=== PATIENT | male | born 2000 | race Caucasian/White ===

== ENCOUNTER 2018-01-17 15:39 | Emergency (ER) | payer MEDICAID ==
[~2018-01-17] VITALS: Ht 190.5 cm; Wt 110.0 kg
[~2018-01-17 15:39] MED LIST: IBUP-1984 PO; NO HOME MEDS
[2018-01-17 15:47] VITALS: BP 149/94
[2018-01-17] MEDS ORDERED: acetaminophen w/codeine (30MG) #3 tablet PO ONE (17:25)
[2018-01-17] MEDS ORDERED: ACET-3067 PO (17:27)
== END 2018-01-17 18:15 | disposition home or self-care (01) ==
LOC: ER 15:41
DX: M79.605 Pain in left leg (principal)
CPT/HCPCS: 99282; A6255

== ENCOUNTER 2021-02-23 09:54 | Emergency (ER) | payer MEDICAID ==
[~2021-02-23] VITALS: Ht 190.5 cm; Wt 109.4 kg
[~2021-02-23 09:54] MED LIST changes: +LIDOcaine 1% W/epiNEPHrine 1:100,000 20ml vial ONE
[2021-02-23 10:19] VITALS: BP 138/98
[2021-02-23] MEDS ORDERED: CEPH250T PO (12:21)
[2021-02-23] MEDS ORDERED: SULF1TAB45 PO (12:21)
== END 2021-02-23 12:38 | disposition home or self-care (01) ==
LOC: ER 09:55
DX: L02.511 Cutaneous abscess of right hand (principal); Z79.899 Other long term (current) drug therapy
CPT/HCPCS: 26010; 73140; 99283

== ENCOUNTER 2025-03-06 06:09 | Emergency (ER) | payer MEDICAID, OTHER ==
[~2025-03-06] VITALS: Ht 190.5 cm; Wt 110.3 kg
[~2025-03-06 06:09] MED LIST changes: -LIDOcaine 1% W/epiNEPHrine 1:100,000 20ml vial ONE
[2025-03-06 06:15] VITALS: TEMP 98
--- NOTE | 2025-03-06 06:59 | Physician Documentation ---
History of Present Illness Chief Complaint: Vomiting Stated Complaint: VOMITING Time Seen by MD: 06:27 Primary Medical Doctor: [facility] HPI This is a 25-year-old gentleman with no significant past medical history who presents for evaluation of nausea vomiting that began three days ago without any obvious trigger provocation. The particular palliating or aggravating factors. He smokes marijuana everyday, however with the hot showers with a up helping. No prior history of cannabinoid hyperemesis. He states that he yesterday he vomited 2 times, however today he is experiencing intractable nausea vomiting. He also reports that it has been lack of flatus for the last two days. The prior history of abdominal surgery. He did not develop epigastric abdominal pain after multiple episodes of vomiting. The particular palliating or aggravating factors. Smokes marijuana, denies any other substance use. 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 Physical Exam Vital Signs: Temperature: 98.0, Heart Rate: 76, Respiratory Rate: 16, BP: 156/103, Pulse Oximetry: 100, Weight: 110.300 Oxygen Flow Rate: 0 Physical Exam GENERAL: Awake, alert, oriented, GCS 15, no apparent distress, non-toxic appearing, answers questions, follows commands appropriately. Actively vomiting in triage, accompanied by dad HEENT: Atraumatic, normocephalic, pupils equal, extraocular muscles intact, sclerae anicteric, mucus membranes moist, oropharynx is clear, no stridor. NECK: supple, full active range of motion, trachea midline, no thyromegaly, no lymphadenopathy, no JVD. CARDIOVASCULAR: regular rate/rhythm, no murmurs/gallops/rubs, Pulses are 2+ in all extremities and symmetric. Capillary refill less than 2 seconds. PULMONARY: Nonlabored, good air movement ,no respiratory distress, speaking in full sentences, clear to auscultation bilaterally, no wheezing, no ronchi, no rales, no accessory muscle use. GASTROINTESTINAL: Soft, non-tender, non-distended, normal active bowel sounds, no organomegaly, no pulsatile masses, no CVA tenderness. NEUROLOGIC: Lucid with normal mental status. Normal facial symmetry. Moves all extremities symmetrically and with purpose. No truncal ataxia. Speech is fluid without evidence of dysarthria or aphasia, no focal deficits appreciated. MUSCULOSKELETAL: There is full range of motion of all extremities. There is no joint pain or joint swelling or joint erythema. There is no muscle pain or tenderness or swelling. EXTREMITIES: warm, well-perfused, no cyanosis, no clubbing, no edema, no acute deformities. Skin: warm, dry, no rashes or lesions, no jaundice, no petechiae orpurpura. No ecchymosis. PSYCHIATRIC: Normal affect, normal insight, normal concentration. Focused exam: [] Progress Results/Orders Results/Orders Orders - JYOTSNA LOPEZ DO Urinalysis, Cult If Indicated (03/06/25 06:13) Cbc/Diff (03/06/25 06:13) Lipase (03/06/25 06:13) CMP (03/06/25 06:13) Completed Orders - JYOTSNA LOPEZ DO Ondansetron Disint. Tablet (Zofran Odt T (03/06/25 06:35) Vital Signs 03/06/25 06:15 Temp 98.0 Pulse 76 Resp 16 B/P (MAP) 156/103 Pulse Ox 100 O2 Flow Rate 0 Medical Decision Making Findings Facility Status: ED Holds, [facility] process The plan was discussed with the patient, who demonstrates clear understanding of the plan and is in agreement with the plan unless otherwise noted in the chart. All questions have been answered, all concerns were addressed unless otherwise documented. I was available throughout their ED stay for frequent reassessment and questions. Differential Diagnoses (considered and possible or likely): [Preformed toxin ingestion/food poisoning, viral gastroenteritis, less likely bowel obstruction, less likely carcinoid syndrome, less likely cannabinoid hyperemesis, less likely acute surgical process and abdomen] ??Differential Diagnoses (considered and unlikely, not requiring evaluation currently): [No evidence of traumatic injury] MDM Data Please see HPI for the following: Independent Historians and external Records Review. Historian: [Patient] Independent Historians: ?[Dad, record review] Medication Management: [Reviewed medication list] Social History and determinants: [Reviewed] Please see the body of the note for the following: Any independent interpretations of ECG, imaging studies. All vitals signs/haemodynamics, ordered tests were independently reviewed and interpreted by myself. Nursing triage complaint and vitals reviewed, additional nursing notes were reviewed as available and I agree unless otherwise noted or documented in contradiction in the chart Vital Signs: Independently reviewed Labs: Independently interpreted Imaging: Independently interpreted Old Medical Records: Independently reviewed, see HPI for relevant summary and information Pulse Oximetry: [100%] interpreted as [normal on room air] by me [Paper Inspector: [Regular Rate, Regular rhythm, no ectopy, NSR] reviewed and interpreted by me] Additionally notably showing: [Hemodynamically stable. Mild hypokalemia noted process, however diverticulosis without diverticulitis noted] Tests considered but not ordered include: [Not consistent with cholecystitis, ultrasound can be done on outpatient basis] Social Determinants of Health Impact: Patient was evaluated in [facility] [place] to healthcare due to below par ratio of patient to medical providers. [] Comorbid Conditions Impacting Present Evaluation and Care/Treatment: [Marijuana use disorder] Management Discussions with other Healthcare Providers: [Non] Treatment and Disposition Medication Management (Given or considered): [Nausea management, fluid resuscitation]. See EMR for details Consideration for Hospitalization/Escalation/Deescalation of Care: Admission for observation has been considered, [however the patient is able to tolerate p.o., their symptoms are controlled, they are able to rely on oral medications, and their chief complaint/diagnosis can be managed on outpatient basis.] ?ED Course:?[Patient did have positive true suicide on presentation, improved with fluid resuscitation. Potassium was corrected.] ?Shared decision making:?[Patient is hemodynamically stable for discharge home with follow with their primary care provider. [ ] Specific and cautious return precautions provided and discussed with full understanding. Any incidental findings were also discussed and follow up recommendations given. [] All questions answered. Patient/family were able to verbalize back return precautions. Patient/family agree to plan. Copies of imaging and laboratory studies were provided.] Code status:?FULL Please see the full Electronic Medical Record for full details of nursing do cumentation, medications list, other records of complete past medical history and conditions, vital signs, laboratory studies, and any radiologic study interpretations by radiologists. Portions of this note were completed using [employer] dictation software and as a result there may exist minor errors in spelling. I have reviewed elements of past family and social history and agree as included in note. Departure Disposition: HOME / SELF CARE / HOMELESS Impression: Primary Impression: Nausea and vomiting Additional Impression: Epigastric abdominal pain Condition: Improved Discharge Instructions: Nausea and Vomiting, Adult, Dehydration, Adult Referrals: NO PRIMARY CARE PROVIDER (PCP) Prescriptions ONDANSETRON ODT 4mg tablet (ONDANSETRON ODT) 4 Mg Tab.rapdis 1 TAB PO Q6H PRN PRN for nausea/vomiting for 4 Days, #16 TAB 0 Refills Prov: JYOTSNA LOPEZ DO 03/06/25 Education Educated: Patient Educated regarding: diagnosis, treatment, prognosis, need for follow up Signature Scribe Signature: No scribe Attestation: This note accurately reflects clinical decisions, work performed by myself, DO JOHN Weeks NICHOLAS M DO March 06, 2025 06:59
[2025-03-06] MEDS: ondansetron 4mg rapidly disintigrating tab PO ONE (07:05)
[2025-03-06] MEDS: ringers solution, lacted 1,000 ML IV ONE (07:14)
[2025-03-06] MEDS: proCHLORperazine 10 MG/2 ml inj IV ONE (07:19)
[2025-03-06] MEDS ORDERED: iohexol 300mg/ml 100ml inj. ONE (07:20)
[2025-03-06 07:39] LABS: BASOPHILS # (AUTO) 0.1 X10'3 (0-0.2); BASOPHILS % (AUTO) 0.5 % (0-1); EOSINOPHILS # (AUTO) 0.1 X10'3 (0-0.9); EOSINOPHILS % (AUTO) 1.3 % (0-6); HEMATOCRIT 42.4 % (42.0-52.0); HEMOGLOBIN 14.9 g/dl (14.0-17.9); LYMPHOCYTES # (AUTO) 2.3 X10'3 (1.1-4.8); LYMPHOCYTES % (AUTO) 22.7 % (21-51); MEAN CORPUSCULAR HGB CONC 35.2 g/dL (33.0-36.5); MEAN CORPUSCULAR VOLUME 85.3 FL (78-98); MEAN PLATELET VOLUME 8.7 FL (7.4-10.4); MONOCYTES # (AUTO) 0.8 X10'3 (0-0.9); MONOCYTES % (AUTO) 7.5 % (2-12); NEUTROPHILS # (AUTO) 6.8 X10'3 (1.8-7.7); PLATELET COUNT 374 X10'3 (140-440); RED BLOOD COUNT 4.98 X10'6 (4.70-6.10); RED CELL DISTRIBUTION WIDTH 12.7 % (11.5-14.5)
[2025-03-06 07:59] LABS: ALANINE AMINOTRANSFERASE 22 U/L (12-78); ALBUMIN 4.4 G/DL (3.4-5.0); ALBUMIN/GLOBULIN RATIO 1.3 (1.1-1.5); ALKALINE PHOSPHATASE 105 IU/L (46-116); ANION GAP 14 (8-16); ASPARTATE AMINO TRANSFERASE 19 U/L (10-37); BILIRUBIN,TOTAL 0.8 MG/DL (0.1-1.0); BLOOD UREA NITROGEN 13 MG/DL (7-18); BUN/CREATININE RATIO 13.7 (10.0-20.0); CALCIUM 9.5 MG/DL (8.5-10.1); CHLORIDE 102 MMOL/L (99-107); CREATININE 0.95 MG/DL (0.60-1.10); GLUCOSE 122 MG/DL (70-104); LIPASE 43 U/L (16-77); POTASSIUM 3.2 MMOL/L (3.5-5.1); SODIUM 140 MMOL/L (135-145); TOTAL CARBON DIOXIDE 24.5 MMOL/L (24-32); TOTAL PROTEIN 7.8 G/DL (6.4-8.2); eCRCL 140 ML/MIN; eGFR > 90 ML/MIN
--- NOTE | 2025-03-06 08:50 | RADIOLOGY REPORT ---
CLINICAL INFORMATION: Upper abdominal pain, nausea and vomiting. TECHNIQUE: Axial CT images of the abdomen and pelvis were obtained after the uneventful administrati on of 100 mL Omnipaque 300 IV contrast. Coronal and sagittal reformatted images were obtained, review ed, and stored. All CT scans at this medical facility are performed using dose modulation techniques as appropriate to a performed exam including the following: Automated exposure control was utilized; adjustment of the MA and/or KV according to patient size; and use of iterative reconstruction technLaTherm ue. CTDIvol = 31.74 mGy DLP = 1619.78 mGy-cm COMPARISON: None FINDINGS: Lung bases: Lung bases are clear. Liver: Unremarkable. No abnormal density or focal lesion. Biliary: Punctate calcified gallstone in the gallbladder. Spleen: Unremarkable. Pancreas: Unremarkable. No inflammatory changes, ductal dilatation, or mass identified. Adrenal glands: Unremarkable. No mass. Kidneys: No hydronephrosis. Cyst in the upper pole of the left kidney measures up to 1.8 cm. Aorta/Vascular: No aneurysm or significant calcification. Retroperitoneum: No mass or lymphadenopathy. Bowel/mesentery: No small bowel obstruction. Nonspecific nondilated fluid-filled small bowel loops. A ppendix is visualized and appears unremarkable. Scattered colonic diverticula without adjacent infla mmatory changes to suggest diverticulitis. There is fatty replacement of the wall of portions of the colon, which is nonspecific, but may inflammation. Pelvic organs: Grossly unremarkable. Bladder: Unremarkable. No mass. Abdominal wall: No mass or hernia. Bones: No acute fracture or focal intraosseous lesion. IMPRESSION: 1. Scattered colonic diverticula without adjacent inflammatory changes to suggest diverticulitis. 2. Nonspecific nondilated fluid-filled small bowel loops. Findings may be seen with ileus or enteriti s in the appropriate clinical setting. No small bowel obstruction. 3. Cholelithiasis. 4. Additional findings as described above.
[2025-03-06] MEDS ORDERED: ONDA-243 PO (09:04)
[2025-03-06 09:40] VITALS: BP 129/61; PULSE 78; RESP 16; O2SAT 100
== END 2025-03-06 09:44 | disposition home or self-care (01) ==
LOC: ER 06:09
DX: R11.2 Nausea with vomiting, unspecified (principal); R10.13 Epigastric pain
CPT/HCPCS: 36415; 74177; 80053; 82330; 83690; 85025; 96361; 96374; 99285; J0780; J7120; Q9967; J7030

== ENCOUNTER 2025-06-06 09:01 | Inpatient (IN) | payer OTHER ==
[~2025-06-06] VITALS: Ht 190.5 cm; Wt 99.9 kg
[2025-06-06] VITALS (21 sets, daily range): BP systolic 110–144; BP diastolic 54–89; PULSE 47–92; RESP 14–26; TEMP 97.2–98.6; O2SAT 93–100
[~2025-06-06 09:01] MED LIST changes: +ONDA-243 PO
[2025-06-06 09:49] LABS: MEAN PLATELET VOLUME 8.2 FL (7.4-10.4); RED CELL DISTRIBUTION WIDTH 13.1 % (11.5-14.5)
[2025-06-06] MEDS: ondansetron 4mg rapidly disintigrating tab PO ONE (10:00)
--- NOTE | 2025-06-06 10:02 | ELECTROCARDIOGRAPH REPORT ---
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 Horacio Hidalgo Measurements Intervals [place] Rate: 55 P: 7 NV: 162 QRS: -15 QRSD: 96 T: 17 QT: 471 QTc: 451 Interpretive Statements Sinus bradycardia Borderline left axis deviation ST elev, probable normal early repol pattern Electronically Signed On 06-06-2025 20:05:[address] Horacio Hidalgo Please click the below link to view image of tracing.
[2025-06-06 10:03] LABS: CREATININE 0.90 MG/DL (0.60-1.10); TOTAL CARBON DIOXIDE 20.7 MMOL/L (24-32); eCRCL 147 ML/MIN; eGFR > 90 ML/MIN
--- NOTE | 2025-06-06 10:32 | Physician Documentation ---
History of Present Illness Chief Complaint: Abdominal Pain w/vomiting Stated Complaint: ABD PAIN Time Seen by MD: 10:18 Primary Medical Doctor: [facility] HPI This 25-year-old male presents to the ED with a complaint of right lower quadrant abdominal pain since 7:00 a.m. this morning. States he feels generally ill has a increased pain. In the area.reportd Pain when walking or jumping Patient states he has all of his organs and thinks that his pain may be his appendix.. Patient is generally healthy. Reports a subjective fever. 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 Physical Exam Vital Signs: Temperature: 97.6, Source: Oral, Heart Rate: 43, Respiratory Rate: 14, BP: 156/97, Pulse Oximetry: 100, Weight: 219.700 Oxygen Flow Rate: 0 Physical Exam General: Alert, no apparent distress. Respiratory: Lungs clear, no respiratory distress. . Cardiovascular: Regular rate and rhythm, no murmurs. Gastrointestinal: Soft, tender right lower quadrant deep palpation., negative rebound tenderness Neurologic: Oriented x4. Psychiatric: Normal mood and affect. Skin: Normal color, warm and dry. No edema, no ecchymosis. 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 (06/06/25 10:30) Morphine 4mg/Ml Inj. (Morphine Inj.) (06/06/25 10:30) Medications Received in ER Medications (Trade) Dose Ordered Sig/Jody Route PRN Reason Start Time Stop Time Status Last Admin Dose Admin (Zofran ODT tablet) 4 mg ONCE ONCE PO 06/06/25 09:55 06/06/25 09:57 DC 06/06/25 10:00 4 MG Vital Signs 06/06/25 06/06/25 09:04 10:22 Temp 98.1 97.6 Pulse 62 43 Resp 26 14 B/P (MAP) 140/107 156/97 (116) Pulse Ox 100 100 O2 Flow Rate 0 0 Laboratory Tests Test 06/06/25 09:34 White Blood Count 23.9 H Red Blood Count 4.73 Hemoglobin 14.0 Hematocrit 40.2 L Mean Corpuscular Volume 84.9 Mean Corpuscular Hemoglobin 29.6 Mean Corpuscular Hemoglobin Concent 34.8 Red Cell Distribution Width 13.1 Platelet Count 325 Mean Platelet Volume 8.2 Neutrophils (%) (Auto) 84.0 H Lymphocytes (%) (Auto) 9.5 L Monocytes (%) (Auto) 5.4 Eosinophils (%) (Auto) 0.8 Basophils (%) (Auto) 0.3 Neutrophils # (Auto) 20.1 H Lymphocytes # (Auto) 2.3 Monocytes # (Auto) 1.3 H Eosinophils # (Auto) 0.2 Basophils # (Auto) 0.1 CBC Comment Sodium Level 141 Potassium Level 3.7 Chloride Level 107 Carbon Dioxide Level 20.7 L Anion Gap 13 Blood Urea Nitrogen 14 Creatinine 0.90 Estimated GFR/1.73 m2 > 90 BUN/Creatinine Ratio 15.6 Glucose Level 128 H Calcium Level 9.1 Total Bilirubin 0.5 Aspartate Amino Transf (AST/SGOT) 20 Alanine Aminotransferase (ALT/SGPT) 27 Alkaline Phosphatase 87 Total Protein 7.6 Albumin 4.2 Globulin 3.4 Albumin/Globulin Ratio 1.2 Lipase 23 Chemistry Comments Medical Decision Making Findings Dr. Sweeney was advanced in the patient's condition. At this time we are suspecting unlikely positive appendicitis. We will go to the OR if this is the case in an we will be transferred to the floor. Differential Dx:Considerations: Include: AAA, Angina/CO, Aortic dissection, Appendicitis, Bowel obstruction, Cholangitis, Cholelithasis, Constipation, Diverticular disease, Esophageal rupture, Esophagitis, Gastritis/PUD, Gastroenteritis, GI hemorrhage, Hernia, Hepatitis, Inflammatory BD, Ischemic bowel, Pancreatitis, Porphyria, Testicular torsion, Trauma, intraabdominal, Urinary obstruction, Urinary tract infection, Urolithiasis, Other Departure Disposition: HOME / SELF CARE / HOMELESS Impression: Primary Impression: Abdominal pain Additional Impression: Appendicitis Referrals: NO PRIMARY CARE PROVIDER (PCP) Education Educated: Patient Educated regarding: diagnosis Signature Scribe Signature: g Attestation: Scribed for Brody Sinclair Icu Tech by Brody Lopez NP . 06/06/25 11:45 BRODY SINCLAIR NP Jun 06, 2025 10:32
[2025-06-06] MEDS: normal saline 1000ML IV soln IVB ONE (10:52)
[2025-06-06] MEDS: morphine 4 MG/ML inj SYRINge IV ONE (10:59)
[2025-06-06] MEDS: piperacillin/tazo 3.375gm/50ml 50 ML IV SCH ×2 (11:00→22:01)
[2025-06-06] MEDS ORDERED: iohexol 300mg/ml 100ml inj. ONE (11:36)
--- NOTE | 2025-06-06 11:46 | CONSULTATION REPORT ---
Consult Providers to CC ~ History of Present Illness Reason for Admit\Complaint: 25-year-old male with complaint of severe right lower quadrant pain. History of Present Illness 25-year-old male who presented to emergency room this morning 06/06/2025 for above complaints. Associated symptoms include fever, chills, nausea, vomiting. Denies diarrhea or constipation. Patient has no significant past medical history or surgical history. He does not take any medications. Last bowel movement early this morning. Last meal last night 06/05/25. Patient currently seen in mild distress with right lower quadrant pain. Allergies: Coded Allergies: No Known Allergies (Unverified , 06/06/25) Home Medications Home Medications Active Ondansetron Odt (Ondansetron HCl) 4 Mg Tab.rapdis 1 Tab PO Q6H PRN PRN 4 Days Motrin* (Ibuprofen) 400 Mg Tablet 1-2 Tab PO Q8H Reported No Home Medications (Home Med List) Each Past Medical History Past Medical History None Past Surgical History Surgical History Comment None Past Social History Social History Comment Denies ETOH, or recreational drug abuse Health Maintenance Health Maintenance Nonsignificant ROS ROS All within normal limits except for HPI Exam Vitals: Vital Signs Date Time Temp Pulse Resp B/P (MAP) Pulse Ox O2 Delivery O2 Flow Rate FiO2 06/06/25 10:59 15 06/06/25 10:24 06/06/25 10:22 97.6 43 100 0 General: Well nourished, mild distress HEENT: NC/AT, PERRLA, nonicteric, no nasal discharge, no pharyngeal exudates Neck: Supple, nontender Chest: Clear to auscultation bilaterally Cardiovascular: Regular rate and rhythm Abdomen: Soft, nondistended, +right lower quadrant tenderness, no guarding, no rebound Extremities: No clubbing, cyanosis, or edema Central Nervous System: Alert and oriented x3, no gross or focal deficits Musculoskeletal: Free range of motion, no weakness Skin: Warm, dry, non diaphoretic Diagnostic Data Last Recorded Lab Results: 06/06/25 0934 06/06/25 0934 Diagnostic Data: CT scan: Pending Problems: (1) Abdominal pain (2) Appendicitis Status: Acute Assessment & Plan: Assessment: acute appendicitis, Highly likely based on history, physical, and labs. Plan: After CT confirmation of probable appendicitis, laparoscopic appendectomy is planned. The risks and benefits of the planned procedure were presented to the patient including but not limited to infection, bleeding, poor wound healing, and non resolution of pain symptoms. He was given the opportunity to ask questions, and all his questions were answered to her satisfaction present time. Prophylactic IV antibiotics has been initiated in the ER. Date of Service: Jun 06, 2025 Billing Provider: CALEB HARDY DO Common Visit Codes: 77080-GHI/OBS SAME DATE (HIGH) CALEB HARDY DO Jun 06, 2025 11:46
[2025-06-06] MEDS ORDERED: HYDROcodone/acetaminophen 5mg/325mg tablet PO PRN (11:55)
[2025-06-06] MEDS ORDERED: potassium Cl 20 mEq SR tablet PO PRN ×2 (11:55)
[2025-06-06] MEDS ORDERED: potassium Cl 40MEQ/1/2NS 520ml 520 ML IV PRN (11:55)
[2025-06-06] MEDS ORDERED: ondansetron/PF 4mg/2ml inj IV PRN ×2 (11:55→13:25)
[2025-06-06] MEDS ORDERED: magnesium sulf-water 2g/50mL 50 ML IV PRN (11:55)
[2025-06-06] MEDS ORDERED: mag hydrox/Alum hydrox/simeth 30ml oral suspension PO PRN (11:55)
[2025-06-06] MEDS ORDERED: magnesium hydroxide 30ml (MOM) UD suspension PO PRN (11:55)
[2025-06-06] MEDS ORDERED: normal saline 1000ml 1,000 ML IV ONE (11:55)
[2025-06-06] MEDS ORDERED: magnesium sulf-water 4G/100mL 100 ML IV PRN (11:55)
[2025-06-06] MEDS ORDERED: BUPIVAcaine/PF 5 mg/ml 10ml ONE (12:28)
[2025-06-06] MEDS ORDERED: LIDOcaine 1% (10mg/ml)w/preservative inj. 20ml MDV ONE (12:29)
--- NOTE | 2025-06-06 12:40 | RADIOLOGY REPORT ---
Exam: CT CT ABDOMEN PELVIS W/ IV CONTRAST History: RLQ abd pain Comparison Study: CT CT ABDOMEN PELVIS W/ IV CONTRAST on DOS: 03/06/25 Technique: Multidetector spiral CT of the abdomen was performed from lung bases to pubic symphysis. A xial imaging was performed with intravenous contrast following the uneventful administration of 100 m l Omnipaque 300. Coronal and sagittal multiplanar reformats were obtained from the axial data set by the technologist. Radiation Dose : 1. Abdomen/Pelvis: CTDIvol 27.4 mGy, DLP 1432.4 mGy*cm. Findings: Lung Bases: Lung bases are clear. Visualized portions of the heart and pericardium are unremarkable. Liver: The liver is normal in size. No focal lesions. Gallbladder and Biliary Tree: The gallbladder is unremarkable. No intrahepatic or extrahepatic bilia ry ductal dilatation. Spleen: Unremarkable Pancreas: The pancreas enhances normally and there are no focal lesions. The main pancreatic duct is not dilated Adrenal Glands: Unremarkable Kidneys: Kidneys enhance symmetrically. No calculi or hydronephrosis. GI tract: The stomach is grossly normal in appearance. The small bowel is underdistended. No small b owel obstruction or suspicious wall thickening. The colon is underdistended. There is dilatation and mucosal hyperemia of the appendix. The appendix measures 9 mm in diameter and there is mild periapp endiceal fat stranding, consistent with acute appendicitis. Peritoneum/mesentery/retroperitoneum. No evidence of free intraperitoneal air. No ascites. No fluid c ollection. Lymph nodes: No evidence of suspicious lymphadenopathy. Abdominal Wall: Unremarkable. Vasculature: Abdominal aorta and main branches are unremarkable. Normal vascular enhancement. Urinary Bladder: Grossly unremarkable for degree of distention. Pelvic Organs: Unremarkable Musculoskeletal: No aggressive focal bony lesions, acute fractures or dislocation. Multiple Schmorl's nodes noted. IMPRESSION: 1.Acute appendicitis. No perforation or fluid collection.
--- NOTE | 2025-06-06 12:49 | HISTORY AND PHYSICAL ---
History & Physical Providers to ~ History of Present Illness Reason for Admit\Complaint: Acute appendicitis, sepsis History of Present Illness Jonathan Cummings is a 25-year-old male with no reported past medical history who presented to the ED with chief complaint of acute onset right lower quadrant abdominal pain with associated symptoms of fever x 1 day. Patient denies prior [place]/CAD, CVA, cardiac arrhythmia, DVT/PE, or GIB. Patient denies chest pain, palpitations, shortness of breath, n/v/d. CT abdomen/pelvis consistent with acute appendicitis. Other notable findings were findings of sepsis including elevated lactic acid. Patient is admitted for surgical consult and medical management. Surgeon Vick Jacobson is consulted and patient is being taken to OR today. Allergies: Coded Allergies: No Known Allergies (Unverified , 06/06/25) Home Medications Home Medications Active Ondansetron Odt (Ondansetron HCl) 4 Mg Tab.rapdis 1 Tab PO Q6H PRN PRN 4 Days Motrin* (Ibuprofen) 400 Mg Tablet 1-2 Tab PO Q8H Reported No Home Medications (Home Med List) Each Past Medical History Past Medical History Denies Past Surgical History Surgical History Comment Denies Past Social History Social History Comment Alcohol: denies Tobacco: e-cig, daily Illicit Drug Use: denies Living Situation: Lives at home with family ROS ROS Other than positives in HPI, all 14 review of systems are negative Exam Vitals: Vital Signs Date Time Temp Pulse Resp B/P (MAP) Pulse Ox O2 Delivery O2 Flow Rate FiO2 06/06/25 12:15 40 16 135/80 (98) 97 0 06/06/25 10:22 97.6 General: Generalized weakness, A&Ox 3, NAD HEENT: Normocephalic, PERRLA Neck: Supple, trachea midline, no JVD Chest: Clear to auscultation bilaterally Cardiovascular: RRR, S1&S2 Extremities: No cyanosis/clubbing/or edema Central Nervous System: CN II-XII intact, no focal deficits Musculoskeletal: No paraspinal muscle tenderness, no muscle spasm Skin: Laproscopic incisions umbilicus, left lower quadrant, right lower quadrant w/o s/s infection Diagnostic Data Last Recorded Lab Results: 06/06/25 0934 06/06/25 0934 Additional Plan Assessment & Plan Acute appendicitis Sepsis 2/2 appendicitis -CT shows acute appendicitis. No perforation or fluid collection. OR today for lap appendectomy -IVF, Zosyn, follow blood cx DVT/VTE Prophylaxis: SCDs Code status: Full Code I spent a total of 35 minutes discussing Advanced Care Planning measures with the patient. Advance care planning: Discussed with patient the importance of advance care planning in case of emergent situation. We discussed various resuscitative measures/ ACP with the patient at the time of admission. Patient voiced understanding and patient has decided on a full code status. Date of Service: Jun 06, 2025 Billing Provider: JUAN PABLO RERADON Common Visit Codes: 56325-BOMIDBH INP/OBS CARE (HIGH) Secondary Visit Codes: 12792-AJNPRQLX CARE PLAN 30 MINUTES JUAN PABLO REARDON Jun 06, 2025 12:49
[2025-06-06] MEDS ORDERED: hydrALAZINE 20mg/ml inj. IV PRN (13:25)
[2025-06-06] MEDS ORDERED: labetalol 20mg/4ml (5mg/ml) syringe IV PRN (13:25)
[2025-06-06] MEDS ORDERED: HYDROmorphone/PF 0.2 MG/ML SYRINGE IV PRN ×2 (13:25)
[2025-06-06] MEDS: ringers solution, lacted 1,000 ML IV SCH ×2 (13:25→18:40)
[2025-06-06] MEDS ORDERED: midazolam 1 mg/ML 2ml injection ONE (13:28)
[2025-06-06] MEDS ORDERED: fentaNYL /PF 50mcg/ml 5ml ampule ONE (14:04)
[2025-06-06] MEDS ORDERED: dexamethasone sod phosphate 4mg/ml inj. ONE (14:12)
[2025-06-06] MEDS ORDERED: propofol inj 20 ML IV ONE (14:12)
[2025-06-06] MEDS ORDERED: rocuronium 10mg/ml inj IV ONE (14:12)
[2025-06-06] MEDS ORDERED: ondansetron/PF 4mg/2ml inj ONE (14:13)
[2025-06-06] MEDS ORDERED: LIDOcaine 2% (20mg/ml) 5ml vial ONE (14:13)
[2025-06-06] MEDS ORDERED: glycopyrrolate 0.2mg/ml inj ONE (14:31)
[2025-06-06] MEDS: ringers solution, lacted 1,000 ML IV ONE (14:37)
--- NOTE | 2025-06-06 15:01 | OPERATIVE REPORT ---
Operative Report Providers to ~ Date of Procedure: Jun 06, 2025 Pre-Operative Diagnosis: Acute appendicitis Post-Operative Diagnosis SAME as PRE-Op Procedure Performed Laparoscopic appendectomy Surgeon: Vick Sweeney DO Solar Installation Supervisor None Anesthesiologist: Arron Cheek Type of Anesthesia: General Findings: As per operative dictation Complications None Prosthetics\Implants used: None Estimated Blood Loss: Minimal Specimen Removed: Appendix Description of Procedure: 25-year-old male who presents to the emergency room with severe right lower quadrant pain. CT scan demonstrated findings consistent with acute appendicitis. Laparoscopic appendectomy was planned. The risks and benefits of the planned procedure were presented including but not limited to infection, bleeding, and nonresolution of pain and symptoms. He was given the opportunity to ask questions, and all his questions were answered to his satisfaction pres ent time. After informed consent was obtained, patient received a dose of prophylactic IV antibiotics while in the emergency room. Patient was then brought to the operating room placed in supine position. After general anesthesia was administered, sequential compression device were placed in lower extremities and Jones catheter was inserted. The abdomen was prepped and draped as per usual sterile OR technique. Using combination of 1% lidocaine, and 0.25% Marcaine, all planned incision sites were preemptively anesthetized. The 1st incision at the umbilicus. A 10 mm infraumbilical incision was made down to the level of the fascia. The fascia was grasped with 2 Yves clamps and incised. The abdominal cavity was safely accessed with a blunt 5 mm port. Pneumoperitoneum was achieved to a level of 15 mmHg. Under laparoscopy another 5 mm port was placed in left lower quadrant. The 5 mm port at the umbilicus was replaced with a blunt 12 mm port. The 5 mm port was then placed at the suprapubic region. The procedure continued with identification of the appendix. The appendix was not easily identified. The cecum was identified leading down to what would be the appendix. Phlegmon formation was concealing the appendix. After careful dissection, the appendix was visible noted to be in a corkscrew configuration and partially retrocecal. Careful dissection was performed to divide the mesoappendix using LigaSure device all the way to the base of the appendix. After adequate mobilization of the appendix, 0 PDS Endoloops were placed at the base of the appendix. A total of 2 Endoloops were used. The appendix was then resected using LigaSure. It was placed within an endobag and retrieved from the abdominal field. The umbilical fascia was then repaired using a 0 Vicryl [id number] suture. A total of 1 suture was used. Pneumoperitoneum was evacuated as thoroughly as possible. All ports were removed under laparoscopic vision. Hemostasis was maintained and controlled. All incision sites were repaired using 4 Monocryl subcuticular sutures followed by Dermabond. Patient tolerated procedure well, was extubated and brought to the PACU in stable condition. Counts repoted as correct: Yes Visit Coding Cardiology Date of Service: Jun 06, 2025 Billing Provider: VICK SWEENEY DO Cardiology Evaluation and Colette: NOT BILLABLE VICK SWEENEY DO Jun 06, 2025 15:00
[2025-06-06] MEDS: glycopyrrolate 0.2mg/ml inj IV ONE (15:41)
[2025-06-06] MEDS: morphine 4 MG/ML inj SYRINge IV PRN (15:47)
[2025-06-06] MEDS: acetaminophen 1,000mg/100ml IV 100 ML IV PRN (15:47)
[2025-06-06] MEDS ORDERED: piperacillin/tazo 3.375gm/50ml 50 ML IV SCH (16:00)
[2025-06-06] MEDS: docusate sod 100mg capsule PO SCH (19:26)
[2025-06-06] MEDS: metoclopramide 5 mg/ml inj IV SCH (19:29)
[2025-06-06] MEDS: K and/or MAG REPLACEMENT MC SCH (19:49)
[2025-06-06] MEDS: acetaminophen 1,000mg/100ml IV 100 ML IV SCH (22:01)
[2025-06-06] MEDS: HYDROcodone/acetaminophen 10/325mg tab PO PRN (23:25)
[2025-06-07 02:00] VITALS: BP 117/67; PULSE 59; RESP 16; TEMP 97.2; O2SAT 98
[2025-06-07 06:00] VITALS: BP 131/74; PULSE 68; RESP 16; TEMP 97; O2SAT 98
[2025-06-07 06:12] LABS: MEAN PLATELET VOLUME 8.8 FL (7.4-10.4); RED CELL DISTRIBUTION WIDTH 13.1 % (11.5-14.5)
[2025-06-07 06:32] LABS: CREATININE 0.78 MG/DL (0.60-1.10); TOTAL CARBON DIOXIDE 26.0 MMOL/L (24-32); eCRCL 170 ML/MIN; eGFR > 90 ML/MIN
[2025-06-07 07:00] VITALS: RESP 16; O2SAT 98
[2025-06-07] MEDS ORDERED: METR-159 PO (07:13)
--- NOTE | 2025-06-07 07:57 | PROGRESS NOTE ---
Progress Progress Note: Patient is seen status post laparoscopic appendectomy. Patient states he is doing well. Denies any fever, chills. Postop pain well controlled. Patient tolerated liquid diet. Patient inquiring if he could go home today. Exam Exam Lungs: Clear CVS: RRR Abdomen: Soft, mild distention, +BS Incisions: Clean, dry, intact, minimal tenderness Extremities: No calf tenderness General Appearance: alert, no apparent distress Problem\Assessment\Plan Problems/Diagnosis: (1) Abdominal pain Status: Resolved (2) Appendicitis Status: Resolved Assessment & Plan: Assessment: Status post laparoscopic appendectomy. Doing well. Plan: Surgical area for discharge. Patient given postop instructions. Follow- up with Dr. Sweeney in office 7-10 days. Discharged home on oral antibiotics, Augmentin 875 p.o. b.i.d. x5 days. Results/Orders Result Diagram: 06/07/25 0527 06/07/25 0527 CALEB SWEENEY DO Jun 07, 2025 07:57
[2025-06-07] MEDS ORDERED: CIPR-458 PO (08:57)
--- NOTE | 2025-06-07 11:26 | DISCHARGE SUMMARY ---
Discharge Summary Providers to CC ~ Discharge Summary Admission Diagnosis: Acute appendicitis Hospital Course DATE OF ADMISSION: 06/06/25 DATE OF DISCHARGE: 06/07/25 Discharge Diagnosis\Comment: Acute appendicitis Sepsis 2/2 appendicitis Operations\Procedures: Laparoscopic appendectomy Consultants: Surgeon Vick Jacobson Complications: None Condition on DC: Stable New Medications: Ciprofloxacin HCl (Ciprofloxacin HCl) 500 Mg Tab 1 TAB PO BID for 5 Days, #10 TAB Metronidazole* (Flagyl*) 500 Mg Tablet 1 TAB PO Q8H for 5 Days, #15 TAB Continued Medications: Home Med List (No Home Medications) Each Ibuprofen* (Motrin*) 400 Mg Tablet 1 - 2 TAB PO Q8H, #20 TAB ONDANSETRON ODT 4mg tablet (Ondansetron Odt) 4 Mg Tab.rapdis 1 TAB PO Q6H PRN PRN for nausea/vomiting for 4 Days, #16 TAB 0 Refills Discharge Summary: History of Present Illness Jonathan Cummings is a 25-year-old male with no reported past medical history who presented to the ED with chief complaint of acute onset right lower quadrant abdominal pain with associated symptoms of fever x 1 day. Patient denies prior NM/CAD, CVA, cardiac arrhythmia, DVT/PE, or GIB. Patient denies chest pain, palpitations, shortness of breath, n/v/d. CT abdomen/pelvis consistent with acute appendicitis. Other notable findings were findings of sepsis including elevated lactic acid. Patient is admitted for surgical consult and medical management. Surgeon Vick Jacobson is consulted and patient is being taken to OR today. Hospital Course Patient was started on intravenous fluids and empirical antibiotics. Patient underwent laparoscopic appendectomy on 06/06/[address] Sweeney without complication. On the subsequent day, vitals are stable and labs are notable for resolving leukocytosis and normalized lactic acid. Patient did not experience further complications throughout the entire hospital stay. Patient is cleared for discharge from surgical standpoint by Dr. Sweeney. Patient was seen and examined on the day of discharge. All labs, diagnostic workups, discharge plan discussed with patient in details during visit before discharge. All questions and concerns answered to the best of my professional knowledge. Blood cultures remained negative until the day of discharge. Patient is to be discharged to home to self and to follow-up with PCP and Dr. Sweeney within 1-2 weeks. Physical Exam General: Generalized weakness, A&Ox 3, NAD HEENT: Normocephalic, PERRLA Neck: Supple, trachea midline, no JVD Chest: Clear to auscultation bilaterally Cardiovascular: RRR, S1&S2 GI: Soft and nontender Extremities: No cyanosis/clubbing/or edema EQUAL OPPORTUNITY ASSISTANT: CN II-XII intact, no focal deficits Musculoskeletal: No paraspinal muscle tenderness, no muscle spasm Skin: Warm and intact *Problems/Diagnosis: (1) Abdominal pain Status: Resolved (2) Appendicitis Status: Acute Total Time Spent on D/C: > 30 Minutes Date of Service: Jun 07, 2025 Billing Provider: JUAN PABLO REARDON Common Visit Codes: 26055-ZCP/OBS DISCH DAY >30min JUAN PABLO REARDON Jun 07, 2025 11:26
[2025-06-08] MEDS ORDERED: ONDA-243 PO (11:55)
[2025-06-08] MEDS ORDERED: HYDR-3965 PO (11:55)
== END 2025-06-07 09:08 | disposition home or self-care (01) | DRG 854 ==
LOC: ER 09:01 → ED HOLD 11:57 → ORTHO 4S 17:20
PROVIDERS: ADMIT Nurse Practitioner Family; ATTEND Nurse Practitioner Family
PROC: BW211ZZ Computerized Tomography (CT Scan) of Abdomen and Pelvis using Low Osmolar Contrast (ICD-10-PCS; 2025-06-06)
PROC: 0DTJ4ZZ Resection of Appendix, Percutaneous Endoscopic Approach (ICD-10-PCS; principal; 2025-06-06 13:22)
DX: A41.9 Sepsis, unspecified organism (principal); E87.20 Acidosis, unspecified; K35.80 Unspecified acute appendicitis; Z79.899 Other long term (current) drug therapy
CPT/HCPCS: 96365; 96375; 99285; Z7506; Z7508; 36415; 74177; 80053; 83605; 83690; 83735; 85025; 87040; 93005; A4215; A4618; A6258; A7000; G0378; J0131; J0665; J0780; J1100; J2003; J2250; J2270; J2405; J2543; J2704; J2710; J2765; J3010; J3490; J7030; J7050; J7120; Q9967

== ENCOUNTER 2025-06-08 06:00 | Emergency (ER) | payer OTHER ==
[~2025-06-08] VITALS: Ht 190.5 cm; Wt 102.1 kg
[~2025-06-08 06:00] MED LIST changes: +CIPR-458 PO; +METR-159 PO
[2025-06-08] MEDS: ondansetron/PF 4mg/2ml inj IV ONE (06:22)
--- NOTE | 2025-06-08 06:23 | Physician Documentation ---
History of Present Illness ~ Chief Complaint: Abdominal Pain Stated Complaint: ABDOMINAL PAIN Time Seen by MD: 06:16 Primary Medical Doctor: [facility] Source: patient, family Mode of Arrival: POV Exam Limitations: no limitations HPI Chief Complaint: Abdominal pain Caveat: None Independent Historians: Mother History of Present Illness: Patient is a 25-year-old man postop day #2. Status post laparoscopic appendectomy. Patient was discharged yesterday morning. Yesterday and throughout the night the patient's abdominal pain got worse and had multiple episodes of vomiting and dry heaves. No known fever. Patient's pain is primarily diffuse but worse in the upper abdomen. Pain is severe 10/10. Pain is constant. Review of systems: All systems were reviewed and are negative except for what is indicated in the history of present illness. Past Medical History: None Past Surgical History: Appendectomy Social History: Vapes, no tobacco use, denies alcohol use or other drug use Medications: Reviewed as documented Nursing Notes Allergies: Reviewed as documented in Nursing Notes Medication Reconciliation Allergies: Coded Allergies: No Known Allergies (Unverified , 06/08/25) Scheduled Ciprofloxacin HCl (Ciprofloxacin HCl), 1 TAB PO BID Ibuprofen* (Motrin*), 1-2 TAB PO Q8H Metronidazole* (Flagyl*), 1 TAB PO Q8H Scheduled PRN ONDANSETRON ODT 4mg tablet (Ondansetron Odt), 1 TAB PO Q6H PRN PRN for nausea/vomiting Miscellaneous Medications Home Med List (No Home Medications), (Reported) Past Medical History Past Medical History: No Pertinent History Past Surgical History: no surgical history Patient History: Patient reports no known family medical history. 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 All other systems are negative Physical Exam Vital Signs: RN Vital Signs have been reviewed: Yes, Temperature: 98.6, Source: Oral, Heart Rate: 70, Respiratory Rate: 20, BP: 144/91, Pulse Oximetry: 99, Weight: 102.100 Oxygen Flow Rate: 0 Pulse Oximetry Reflects: adequate oxygenation Physical Exam General Appearance: MODERATE DISTRESS HEENT: Normal OP, moist oral mucosa, PERRL, EOMI Neck: supple, normal ROM, trachea midline Pulmonary: No respiratory distress, CTA, BS equal Cardiac: RRR, no murmur, rub or gallop, GI: nondistended, soft, DIFFUSE TENDERNESS, MORE TENDER IN THE RIGHT UPPER QUADRANT AND EPIGASTRIC REGIONS, normal bowel sounds, no guarding, no rebound, LAPAROSCOPIC SURGICAL SITES ARE CLEAN, DRY AND INTACT Extremities: normal ROM, no swelling, non-tender Skin: intact, dry, warm, no rashes Neuro: AAOx3, speech is clear, no focal motor weakness Psych: normal affect, good eye contact, no apparent hallucination, normal speech Progress Results/Orders Results/Orders Orders - JOSE ALBERTO OROZCO MD Morphine 4mg/Ml Inj. (Morphine Inj.) (06/08/25 06:20) Ed Iv Pain Medications (06/08/25 06:16) Ultrasound Of Abdomen (06/08/25 06:16) Monitor (06/08/25 06:16) Saline Lock (06/08/25 06:16) Nothing By Mouth (06/08/25 Dinner) Cult Urine + [place] [address] (06/08/25 08:48) Po Challenge (06/08/25 10:39) Completed Orders - JOSE ALBERTO OROZCO MD Cbc/Diff (06/08/25 06:16) Lipase (06/08/25 06:16) Ondansetron Inj. (Zofran 4mg/2ml Vial) (06/08/25 06:20) Normal Saline 1000ml (0.9% Sodium Chlori (06/08/25 06:20) Ultrasound Of Abdomen (06/08/25 06:16) Ketorolac Trometh 15mg/Ml Vial (Toradol (06/08/25 06:20) CMP (06/08/25 06:16) Ua W/Microscopic, Cult If Ind (06/08/25 07:56) Prochlorperazine Inj (Compazine Inj) (06/08/25 09:45) Medications Received in ER Medications (Trade) Dose Ordered Sig/Jody Route PRN Reason Start Time Stop Time Status Last Admin Dose Admin (Zofran 4mg/2ml vial) 4 mg ONCE ONCE IV 06/08/25 06:20 06/08/25 06:21 DC 06/08/25 06:22 4 MG (morphine inj.) 4 mg Q20M PRN IV moderate to severe pain 4-10 06/08/25 06:20 06/08/25 06:25 4 MG (0.9% sodium chloride (NS) 1000ml IV soln) 1,000 ml ONCE ONCE IVB 06/08/25 06:20 06/08/25 06:21 DC 06/08/25 06:30 1,000 ML (Toradol injection) 15 mg ONCE ONCE IV 06/08/25 06:20 06/08/25 06:21 DC 06/08/25 06:25 15 MG (Compazine inj) 10 mg ONCE ONCE IV 06/08/25 09:45 06/08/25 09:47 DC 06/08/25 09:55 10 MG Vital Signs 06/08/25 06/08/25 06/08/25 06/08/25 06:05 06:25 06:25 06:33 Temp 98.6 98.6 Pulse 70 55 Resp 20 16 16 22 B/P (MAP) 144/91 137/87 (104) Pulse Ox 99 99 O2 Flow Rate 0 0 06/08/25 06/08/25 06/08/25 06/08/25 06:35 07:46 09:01 09:56 Temp 98.6 Pulse 50 55 60 Resp 18 25 18 23 B/P (MAP) 147/88 (107) 130/86 (101) 152/97 (115) Pulse Ox 98 98 99 O2 Flow Rate 0 0 06/08/25 10:55 Pulse 60 Resp 16 B/P (MAP) 143/85 (104) Pulse Ox 97 O2 Flow Rate 0 Laboratory Tests Test 06/08/25 06:22 06/08/25 07:56 White Blood Count 14.9 H Red Blood Count 4.72 Hemoglobin 13.9 L Hematocrit 40.0 L Mean Corpuscular Volume 84.7 Mean Corpuscular Hemoglobin 29.5 Mean Corpuscular Hemoglobin Concent 34.8 Red Cell Distribution Width 13.1 Platelet Count 348 Mean Platelet Volume 8.3 Neutrophils (%) (Auto) 76.4 H Lymphocytes (%) (Auto) 14.7 L Monocytes (%) (Auto) 7.9 Eosinophils (%) (Auto) 0.6 Basophils (%) (Auto) 0.4 Neutrophils # (Auto) 11.4 H Lymphocytes # (Auto) 2.2 Monocytes # (Auto) 1.2 H Eosinophils # (Auto) 0.1 Basophils # (Auto) 0.1 CBC Comment Sodium Level 138 Potassium Level 3.7 Chloride Level 103 Carbon Dioxide Level 22.1 L Anion Gap 13 Blood Urea Nitrogen 10 Creatinine 1.07 Estimated GFR/1.73 m2 83 BUN/Creatinine Ratio 9.3 L Glucose Level 113 H Calcium Level 9.5 Total Bilirubin 0.8 Aspartate Amino Transf (AST/SGOT) 14 Alanine Aminotransferase (ALT/SGPT) 20 Alkaline Phosphatase 84 Total Protein 7.8 Albumin 4.1 Globulin 3.7 Albumin/Globulin Ratio 1.1 Lipase 30 Chemistry Comments Urine Specimen Description Urinal Urine Color Yellow Urine Clarity Slightly cloudy Urine pH 7.5 Urine Specific [place] 1.025 Urine Protein 30 H Urine Glucose (UA) Negative Urine Ketones >=80 Urine Occult Blood Negative Urine Nitrite Negative Urine Bilirubin Moderate Urine Urobilinogen 0.2 Urine Leukocyte Esterase Negative Urine RBC 0-2 Urine WBC 5-10 H Urine Squamous Epithelial Cells Few Urine Bacteria Few Urine Coarse Granular Casts 0-3 Urine Mucus Moderate Urine Sperm Few Urine Culture Indicated Indicated Volume Urine Centrifuged 10 ml Urine Comment Microbiology Date/Time Source Procedure Growth Status 06/08/25 08:48 Urine Urinal (Er Only) Urine Culture - Preliminary Culture received. Resulted Medical Decision Making Findings Differential diagnosis includes but is not limited to: Perforated viscus, cholelithiasis, choledocholithiasis, cholecystitis, pancreatitis, postoperative pain, ileus Limited abdominal ultrasound, indication: Right upper quadrant pain and epigastric pain Impression: 1. Gallbladder polyp measuring 0.6 cm. No acute appendicitis. 2. Hepatic steatosis. Laboratory data independent interpretation: CBC: WBC elevated at 14.9 CMP: Unremarkable, LFTs normal Urinalysis: RBC 0-2, WBC 5-10, few epithelial cells, few bacteria, nitrite negative Emergency department course/medical decision-making: Patient is a 25-year-old man status post appendectomy. Patient has severe pain and intractable nausea. Patient is given morphine 4 mg IV, Toradol 15 mg IV and Zofran 4 mg IV for his nausea and vomiting. Patient is given 1 L of normal saline. 9:43 a.m.: Patient re-evaluated. Test results and treatment plan reviewed with the patient in his mother. The plan was for discharge. However the patient is now complaining of returning nausea and pain. Patient will be given Compazine 10 mg IV and additional morphine. 11:39 a.m.: Patient re-evaluated: Patient's pain is 3/10. Patient's nausea has resolved. Patient is able to drink fluids. Patient is comfortable going home. Patient will be given a small prescription of [place] 5 mg, 5. However he is instructed to use Tylenol and to only use that if he is requiring more pain control despite Tylenol. Patient is stable for discharge. Consultation/communications: 9:25 a.m.: Case discussed with his surgeon, Dr. Sweeney. The surgery was uneventful, routine without any complications or difficulties. Departure Time of Disposition: 11:50 Disposition: 01 HOME / SELF CARE / HOMELESS Impression: Primary Impression: Postoperative pain Additional Impression: Nausea and vomiting Qualified Codes: R11.2 - Nausea with vomiting, unspecified Condition: Improved Discharge Instructions: How to Prevent Constipation After Surgery, Preventing Problems After Surgery Additional Instructions: YOUR PAIN IS LIKELY POSTOPERATIVE AND MAYBE SECONDARY TO ILEUS. RETURN TO THE ER IF YOUR SYMPTOMS DO NOT IMPROVE OR IF THEY WORSEN OR IF YOU DEVELOP A FEVER. Prescriptions Hydrocodone Bit/Acetaminophen 5/325 MG ([place] 5/325 MG) 5 Mg/325 Mg Tablet 1 TAB PO TID PRN PRN for pain, #5 TAB Prov: JOSE ALBERTO OROZCO MD 06/08/25 ONDANSETRON ODT 4mg tablet (ONDANSETRON ODT) 4 Mg Tab.rapdis 1 TAB PO Q6H PRN PRN for nausea/vomiting, #10 TAB 0 Refills Prov: JOSE ALBERTO OROZCO MD 06/08/25 Education Educated: Patient Educated regarding: diagnosis, treatment, need for follow up Signature Scribe Signature: No scribe Attestation: No scribe JOSE ALBERTO OROZCO MD Jun 08, 2025 06:23
[2025-06-08] MEDS: ketorolac trometh 15mg/ml vial 15 MG/ML ML IV ONE (06:25)
[2025-06-08] MEDS: morphine 4 MG/ML inj SYRINge IV PRN (06:25)
[2025-06-08] MEDS: normal saline 1000ML IV soln IVB ONE (06:30)
[2025-06-08 06:37] LABS: MEAN PLATELET VOLUME 8.3 FL (7.4-10.4); RED CELL DISTRIBUTION WIDTH 13.1 % (11.5-14.5)
[2025-06-08 06:50] LABS: CREATININE 1.07 MG/DL (0.60-1.10); TOTAL CARBON DIOXIDE 22.1 MMOL/L (24-32); eCRCL 124 ML/MIN; eGFR 83 ML/MIN
[2025-06-08 07:46] VITALS: TEMP 98.6
[2025-06-08 08:29] LABS: LEUKOCYTE ESTERASE ,URINE NEGATIVE (Neg); NITRITES, URINE NEGATIVE (Neg); OCCULT BLOOD,URINE NEGATIVE (Neg)
--- NOTE | 2025-06-08 08:35 | RADIOLOGY REPORT ---
INDICATION: Abdominal Pain R/O Gallbladder TECHNIQUE: Multiple real-time sonographic images of the abdomen were obtained. COMPARISON: CT CT ABDOMEN PELVIS W/ IV CONTRAST on DOS: 06/06/25, CT CT ABDOMEN PELVIS W/ IV CONTRAST o n DOS: 03/06/25 FINDINGS: The liver is increased in echogenicity. The liver measures 14.3 cm. No intrahepatic biliary ductal dilatation is noted. The gallbladder wall measures 0.2 cm and is unremarkable. Echogenic nodule in the gallbladder measur ing 0.5 by 0.6 cm. The common duct measures 0.5 cm and is unremarkable. No pericholecystic fluid i s noted. Negative sonographic dumont's sign. The right kidney measures 10.1 cm. No hydronephrosis. The pancreas is not well visualized due to obscuration from bowel gas. The visualized portions of the IVC and aorta are grossly unremarkable. IMPRESSION: 1. Gallbladder polyp measuring 0.6 cm. No acute appendicitis. 2. Hepatic steatosis.
[2025-06-08 08:38] LABS: UA COLLECTION TYPE URINAL
[2025-06-08 08:40] LABS: MUCUS STRANDS MODERATE /LPF (Neg); SQUAMOUS EPITHELIAL CELL,UR FEW /LPF (FEW)
[2025-06-08 08:45] LABS: COARSE GRANULAR CAST 0-3 /LPF (NEGATIVE); SPERM FEW /HPF (NEGATIVE)
[2025-06-08 10:55] VITALS: BP 143/85; PULSE 60; RESP 16; O2SAT 97
[2025-06-08] MEDS ORDERED: ONDA-243 PO (11:55)
[2025-06-08] MEDS ORDERED: HYDR-3965 PO (11:55)
== END 2025-06-08 12:04 | disposition home or self-care (01) ==
LOC: ER 06:01
DX: G89.18 Other acute postprocedural pain (principal); R11.2 Nausea with vomiting, unspecified; F17.290 Nicotine dependence, other tobacco product, uncomplicated; Z90.49 Acquired absence of other specified parts of digestive tract; Z79.899 Other long term (current) drug therapy
CPT/HCPCS: 36415; 76700; 80053; 81001; 83690; 85025; 87088; 96361; 96374; 96375; 99285; J0780; J1885; J2270; J2405; J7030